=== PATIENT | female | born 1970 | race African-American/Black ===

== ENCOUNTER 2016-11-01 11:31 | Emergency (ER) | payer OTHER ==
[~2016-11-01] VITALS: Ht 160 cm; Wt 90.0 kg
[~2016-11-01 11:31] MED LIST: AMLO10TA80 PO; ATOR40TA70 PO; COR25; FERR-43 PO; LISI10TA5 PO; METO25TA6 PO; NITR0.4T3 SL
[2016-11-01 16:33] LABS: BASOPHILS % 0.5 % (0.0-2.0); EOSINOPHILS % 2.7 % (0.0-5.0); HEMATOCRIT. 35.5 % (36.0-48.0); HEMOGLOBIN. 11.3 g/dL (12.0-16.0); LYMPHOCYTES % 23.2 % (20.0-50.0); MEAN CORPUSCULAR VOLUME 65.9 fL (81.0-99.0); MEAN PLATELET VOLUME 9.9 fl (7.4-10.4); MONOCYTES % 9.4 % (2.0-8.0); NEUTROPHILS % 64.2 % (40.0-76.0); PLATELET 202 x1000/uL (130-400); RED BLOOD CELL COUNT 5.39 mill/uL (4.2-5.4)
[2016-11-01 16:35] LABS: CARBON DIOXIDE 25 mEq/L (21-32); CHLORIDE 106 mEq/L (98-107)
[2016-11-01 16:45] LABS: HCG SCREEN NEGATIVE
[2016-11-01] MEDS ORDERED: SODIUM CHLORIDE 0.9% 1,000 ML IV ONE (17:27)
[2016-11-01] MEDS ORDERED: KETOROLAC 30MG/ML VIAL IV ONE (17:30)
[2016-11-01 17:59] LABS: PLATELET ESTIMATE NORMAL
[2016-11-01 18:38] LABS: CLARITY URINE CLEAR (CLEAR); COLOR URINE DARK YELLOW (YELLOW); GLUCOSE URINE NEGATIVE (NEGATIVE); KETONES URINE TRACE (NEGATIVE); LEUKOCYTE ESTERASE URINE NEGATIVE (NEGATIVE); NITRITE URINE NEGATIVE (NEGATIVE); OCCULT BLOOD URINE NEGATIVE (NEGATIVE); PH URINE 5.5 (4.5-8.0); PROTEIN URINE 2+ (NEGATIVE); SPECIFIC GRAVITY URINE 1.025 (1.005-1.030)
[2016-11-01 20:04] VITALS: BP 128/72
== END 2016-11-01 20:06 | disposition home or self-care (01) ==
LOC: ER 13:11
DX: R10.32 Left lower quadrant pain (principal); R10.11 Right upper quadrant pain; G89.29 Other chronic pain; I11.9 Hypertensive heart disease without heart failure; I25.10 Atherosclerotic heart disease of native coronary artery without angina pectoris; Z95.1 Presence of aortocoronary bypass graft; E66.9 Obesity, unspecified; Z68.35 Body mass index [BMI] 35.0-35.9, adult; F17.210 Nicotine dependence, cigarettes, uncomplicated
CPT/HCPCS: 36415; 74022; 80053; 81001; 83690; 84703; 85025; 96361; 96374; 99285; J1885; J7030

== ENCOUNTER 2017-08-14 10:11 | Inpatient (IN) | payer OTHER ==
[~2017-08-14] VITALS: Ht 157.5 cm; Wt 88.9 kg
[~2017-08-14 10:11] MED LIST changes: -NITR0.4T3 SL; +NITR0.4T49 SL
[2017-08-14] MEDS ORDERED: ASPIRIN 81MG TABLET PO ONE (10:30)
[2017-08-14] MEDS ORDERED: NITROGLYCERIN 0.4MG TABLET SL SL PRN (10:30)
[2017-08-14 10:52] LABS: BASOPHILS % 0.7 % (0.0-2.0); EOSINOPHILS % 0.7 % (0.0-5.0); HEMATOCRIT. 34.3 % (36.0-48.0); HEMOGLOBIN. 11.1 g/dL (12.0-16.0); LYMPHOCYTES % 20.7 % (20.0-50.0); MEAN CORPUSCULAR HEMOGLOBIN 21.3 pg (28.0-32.0); MEAN CORPUSCULAR VOLUME 65.5 fL (81.0-99.0); MEAN PLATELET VOLUME 9.5 fl (7.4-10.4); MONOCYTES % 11.3 % (2.0-8.0); NEUTROPHILS % 66.6 % (40.0-76.0); PLATELET 179 x1000/uL (130-400); RED BLOOD CELL COUNT 5.23 mill/uL (4.2-5.4); RED CELL DISTRIBUTION WIDTH 16.9 % (11.6-14.6)
[2017-08-14 11:01] LABS: PROTHROMBIN TIME 10.6 sec (9.4-11.6)
[2017-08-14 11:05] LABS: CHLORIDE 107 mEq/L (98-107)
[2017-08-14 11:09] LABS: TROPONIN I < 0.02 ng/mL (0.00-0.04)
[2017-08-14 11:14] LABS: PLATELET ESTIMATE NORMAL
[2017-08-14] MEDS ORDERED: ACETAMINOPHEN WITH CODEINE 300/30MG TABLET PO ONE (11:30)
[2017-08-14] MEDS ORDERED: POTASSIUM CHLORIDE 20MEQ TABLET SR PO ONE (12:00)
[2017-08-14] MEDS ORDERED: IPRATROPIUM/ALBUTEROL 0.5-3(2.5)MG/3ML NEB INH PRN (13:30)
[2017-08-14] MEDS ORDERED: CLONIDINE 0.2MG TABLET PO PRN (13:30)
[2017-08-14] MEDS ORDERED: ACETAMINOPHEN 325MG TABLET PO PRN (13:30)
[2017-08-14] MEDS ORDERED: LORAZEPAM 0.5MG TABLET PO PRN (13:30)
[2017-08-14] MEDS ORDERED: MAGNESIUM/ALUMINUM HYDROXIDE/SIMETHICONE 30ML UDC PO PRN (13:30)
[2017-08-14] MEDS ORDERED: REGADENOSON 0.4 MG/5 ML IV ONE (13:30)
[2017-08-14] MEDS ORDERED: ONDANSETRON HCL 4MG/2ML VIAL IV PRN (13:30)
[2017-08-14] MEDS ORDERED: CLONIDINE 0.1MG TABLET PO PRN (13:30)
[2017-08-14 14:35] LABS: HCG SCREEN NEGATIVE
[2017-08-14] MEDS: HYDROCODONE/ACETAMINOPHEN 5/325MG TABLET PO PRN (17:30)
[2017-08-14 20:30] VITALS: BP 152/76
[2017-08-14 20:45] LABS: CHLORIDE 108 mEq/L (98-107)
[2017-08-14 20:49] LABS: CREATINE KINASE 65 IU/L (26-192); CREATINE KINASE MB FRACTION < 0.5 ng/mL (0.5-3.6); TROPONIN I < 0.02 ng/mL (0.00-0.04)
[2017-08-14] MEDS ORDERED: ATORVASTATIN CALCIUM 40MG TABLET PO SCH (21:00)
[2017-08-14] MEDS ORDERED: ENOXAPARIN 40MG/0.4ML SYR SUBCUT SCH (21:00)
[2017-08-14 22:27] VITALS: BP 152/76
[2017-08-14] MEDS: LISINOPRIL 5MG TABLET PO SCH (22:45)
[2017-08-14] MEDS: AMLODIPINE 5MG TABLET PO SCH (22:45)
[2017-08-14] MEDS: METOPROLOL TARTRATE 25MG TABLET PO SCH (22:45)
[2017-08-15] VITALS: BP 127/67
[2017-08-15 00:05] LABS: CREATINE KINASE 59 IU/L (26-192); CREATINE KINASE MB FRACTION < 0.5 ng/mL (0.5-3.6); TROPONIN I < 0.02 ng/mL (0.00-0.04)
[2017-08-15] MEDS ORDERED: ALBU90AE IH (00:15)
[2017-08-15] MEDS ORDERED: FLUT16SP15 BOTHNSTRLS (00:15)
[2017-08-15 04:00] VITALS: BP 116/71
[2017-08-15 05:10] LABS: CLARITY URINE CLEAR (CLEAR); COLOR URINE YELLOW (YELLOW); KETONES URINE NEGATIVE (NEGATIVE); LEUKOCYTE ESTERASE URINE NEGATIVE (NEGATIVE); NITRITE URINE NEGATIVE (NEGATIVE); OCCULT BLOOD URINE NEGATIVE (NEGATIVE); PROTEIN URINE 1+ (NEGATIVE); SPECIFIC GRAVITY URINE 1.021 (1.005-1.030); UROBILINOGEN URINE 0.2 E.U./dL (0.2-1.0)
[2017-08-15 05:55] LABS: *AMPHETAMINES SCREEN URINE NEGATIVE (NEGATIVE); *BARBITURATES SCREEN URINE NEGATIVE (NEGATIVE); *BENZODIAZEPINES SCREEN URINE NEGATIVE (NEGATIVE); *COCAINE SCREEN URINE NEGATIVE (NEGATIVE); CANNABINOID URINE SCREEN NEGATIVE (NEGATIVE); METHADONE URINE SCREEN NEGATIVE (NEGATIVE); OPIATES URINE SCREEN PRESUMTIVE POSITIVE (NEGATIVE); PHENCYCLIDINE URINE SCREEN NEGATIVE (NEGATIVE)
[2017-08-15 07:33] LABS: BASOPHILS % 0.6 % (0.0-2.0); EOSINOPHILS % 1.6 % (0.0-5.0); HEMOGLOBIN. 10.7 g/dL (12.0-16.0); LYMPHOCYTES % 23.7 % (20.0-50.0); MEAN CORPUSCULAR HEMOGLOBIN 21.5 pg (28.0-32.0); MEAN CORPUSCULAR VOLUME 66.7 fL (81.0-99.0); MEAN PLATELET VOLUME 10.6 fl (7.4-10.4); NEUTROPHILS % 62.1 % (40.0-76.0); PLATELET 177 x1000/uL (130-400); RED BLOOD CELL COUNT 4.96 mill/uL (4.2-5.4); RED CELL DISTRIBUTION WIDTH 16.8 % (11.6-14.6)
[2017-08-15 08:00] VITALS: BP 130/69
[2017-08-15] MEDS ORDERED: REGADENOSON 0.4 MG/5 ML IV ONE (08:45)
[2017-08-15] MEDS ORDERED: ASPIRIN 81MG EC TABLET PO SCH (09:00)
[2017-08-15] MEDS: AMLODIPINE 5MG TABLET PO SCH (10:42)
[2017-08-15] MEDS: METOPROLOL TARTRATE 25MG TABLET PO SCH (10:42)
[2017-08-15] MEDS: LISINOPRIL 5MG TABLET PO SCH (10:42)
[2017-08-15] MEDS: HYDROCODONE/ACETAMINOPHEN 5/325MG TABLET PO PRN (11:32)
[2017-08-15 12:00] VITALS: BP 125/78
[2017-08-15 18:03] LABS: UCG SCREEN NEGATIVE
[2017-08-15 18:52] VITALS: BP 112/82
== END 2017-08-15 19:43 | disposition home or self-care (01) | DRG 243 ==
LOC: ER 10:25 → 5WST 12:03 → ENRESERV 19:02
PROVIDERS: ADMIT Internal Medicine; ATTEND Internal Medicine
DX: K21.9 Gastro-esophageal reflux disease without esophagitis (principal); E46 Unspecified protein-calorie malnutrition; I11.9 Hypertensive heart disease without heart failure; E78.5 Hyperlipidemia, unspecified; E78.00 Pure hypercholesterolemia, unspecified; E87.6 Hypokalemia; F17.210 Nicotine dependence, cigarettes, uncomplicated; I25.10 Atherosclerotic heart disease of native coronary artery without angina pectoris; J44.9 Chronic obstructive pulmonary disease, unspecified; Z79.82 Long term (current) use of aspirin; Z79.899 Other long term (current) drug therapy; Z95.1 Presence of aortocoronary bypass graft; Z68.35 Body mass index [BMI] 35.0-35.9, adult
CPT/HCPCS: 36415; 71045; 78452; 80048; 80053; 80061; 80305; 81003; 81025; 82550; 82553; 83036; 83735; 83880; 84443; 84484; 84703; 85025; 85379; 85610; 93005; 93017; 93306; 93970; 99285; A9500; J1650; J2785

== ENCOUNTER 2019-08-18 18:53 | Emergency (ER) | payer MEDICAID, OTHER ==
[~2019-08-18] VITALS: Ht 157.5 cm; Wt 91.0 kg
[~2019-08-18 18:53] MED LIST changes: +ALBU90AE IH; +FLUT16SP15 BOTHNSTRLS
[2019-08-19 02:46] LABS: CHLORIDE 108 mEq/L (98-107)
[2019-08-19 03:07] LABS: BASOPHILS % 1.1 % (0.0-2.0); EOSINOPHILS % 2.8 % (0.0-5.0); HEMATOCRIT. 37.2 % (36.0-48.0); HEMOGLOBIN. 12.1 g/dL (12.0-16.0); LYMPHOCYTES % 37.9 % (20.0-50.0); MEAN CORPUSCULAR HEMOGLOBIN 21.5 pg (28.0-32.0); MEAN CORPUSCULAR VOLUME 66.1 fL (81.0-99.0); MONOCYTES % 9.2 % (2.0-8.0); RED BLOOD CELL COUNT 5.62 mill/uL (4.2-5.4); RED CELL DISTRIBUTION WIDTH 17.9 % (11.6-14.6)
[2019-08-19 03:32] LABS: MEAN PLATELET VOLUME 9.6 fl (7.4-10.4); PLATELET 192 x1000/uL (130-400)
[2019-08-19] MEDS ORDERED: IBUPROFEN 600MG TABLET PO ONE (04:00)
[2019-08-19 04:23] VITALS: BP 147/75
== END 2019-08-19 04:27 | disposition home or self-care (01) ==
LOC: ER 18:53
DX: M54.12 Radiculopathy, cervical region (principal); I10 Essential (primary) hypertension; E78.00 Pure hypercholesterolemia, unspecified; J44.9 Chronic obstructive pulmonary disease, unspecified; Z79.899 Other long term (current) drug therapy; Z79.51 Long term (current) use of inhaled steroids
CPT/HCPCS: 36415; 71045; 80048; 81025; 85025; 93005; 99285

== ENCOUNTER 2019-09-01 11:55 | Emergency (ER) | payer MEDICAID ==
[~2019-09-01] VITALS: Ht 160 cm; Wt 94.0 kg
[2019-09-01 14:36] LABS: BASOPHILS % 1.2 % (0.0-2.0); EOSINOPHILS % 2.3 % (0.0-5.0); HEMATOCRIT. 37.7 % (36.0-48.0); HEMOGLOBIN. 12.2 g/dL (12.0-16.0); MEAN CORPUSCULAR HEMOGLOBIN 21.6 pg (28.0-32.0); MEAN CORPUSCULAR VOLUME 66.8 fL (81.0-99.0); MONOCYTES % 9.2 % (2.0-8.0); NEUTROPHILS % 54.3 % (40.0-76.0); RED BLOOD CELL COUNT 5.65 mill/uL (4.2-5.4); RED CELL DISTRIBUTION WIDTH 17.8 % (11.6-14.6)
[2019-09-01 14:42] LABS: CHLORIDE 109 mEq/L (98-107)
[2019-09-01 15:10] LABS: PLATELET 204 x1000/uL (130-400); PLATELET ESTIMATE NORMAL
[2019-09-01 15:37] LABS: *AMPHETAMINES SCREEN URINE NEGATIVE (NEGATIVE); *BARBITURATES SCREEN URINE NEGATIVE (NEGATIVE); *BENZODIAZEPINES SCREEN URINE NEGATIVE (NEGATIVE); *COCAINE SCREEN URINE NEGATIVE (NEGATIVE); METHADONE URINE SCREEN NEGATIVE (NEGATIVE)
[2019-09-01 15:38] LABS: CANNABINOID URINE SCREEN NEGATIVE (NEGATIVE); PHENCYCLIDINE URINE SCREEN NEGATIVE (NEGATIVE)
[2019-09-01 18:27] VITALS: BP 148/70
[2019-09-02 20:14] LABS: OPIATES URINE SCREEN NEGATIVE (NEGATIVE)
== END 2019-09-01 18:33 | disposition home or self-care (01) ==
LOC: ER 11:55 → CANBEDREQ 17:14 → ER 18:33
DX: M54.12 Radiculopathy, cervical region (principal); I11.9 Hypertensive heart disease without heart failure; J44.9 Chronic obstructive pulmonary disease, unspecified; I10 Essential (primary) hypertension; E78.00 Pure hypercholesterolemia, unspecified; Z79.899 Other long term (current) drug therapy
CPT/HCPCS: 36415; 71045; 72141; 80053; 80305; 82962; 83880; 84484; 85025; 93005; 99285

== ENCOUNTER 2020-06-04 12:47 | Emergency (ER) | payer MEDICAID, MEDICARE ==
[~2020-06-04] VITALS: Ht 157.5 cm; Wt 120.0 kg
[2020-06-04 13:00] VITALS: BP 142/51
== END 2020-06-04 16:42 | disposition home or self-care (01) ==
LOC: ER 13:05
DX: J44.1 Chronic obstructive pulmonary disease with (acute) exacerbation (principal); J32.9 Chronic sinusitis, unspecified; I10 Essential (primary) hypertension; E78.00 Pure hypercholesterolemia, unspecified; Z95.1 Presence of aortocoronary bypass graft
CPT/HCPCS: 99283

== ENCOUNTER 2022-01-02 07:29 | Emergency (ER) | payer MEDICAID ==
[~2022-01-02] VITALS: Ht 157.5 cm; Wt 92.0 kg
[~2022-01-02 07:29] MED LIST changes: +LISI10TA26 PO; -LISI10TA5 PO
[2022-01-02] MEDS ORDERED: KETOROLAC 60MG/2ML VIAL IM ONE (08:00)
[2022-01-02] MEDS ORDERED: PREDNISONE 20MG TABLET PO ONE (08:00)
[2022-01-02] MEDS ORDERED: IPRATROPIUM/ALBUTEROL 0.5-3(2.5)MG/3ML NEB HHN ONE (08:00)
[2022-01-02] MEDS ORDERED: ACETAMINOPHEN 325MG TABLET PO ONE (08:00)
[2022-01-02] MEDS ORDERED: P50 MT (09:57)
[2022-01-02] MEDS ORDERED: IBUP-2028 MT (09:57)
[2022-01-02] MEDS ORDERED: ALBU6.7H9 INH (09:57)
[2022-01-02] MEDS ORDERED: TOPUD PO (09:57)
[2022-01-02 10:20] VITALS: BP 131/72
== END 2022-01-02 10:41 | disposition home or self-care (01) ==
LOC: ER 08:18
DX: R07.89 Other chest pain (principal); R05.9 Cough, unspecified; Z20.822 Contact with and (suspected) exposure to COVID-19; I25.10 Atherosclerotic heart disease of native coronary artery without angina pectoris; J44.9 Chronic obstructive pulmonary disease, unspecified; E78.00 Pure hypercholesterolemia, unspecified; I10 Essential (primary) hypertension; Z87.891 Personal history of nicotine dependence
CPT/HCPCS: 71045; 87426; 87804; 93005; 94640; 96372; 99285; C9803; J1885; J7512; Z7610; 94664

== ENCOUNTER 2023-07-27 10:35 | Emergency (ER) | payer MEDICAID, OTHER ==
[~2023-07-27] VITALS: Ht 157.5 cm; Wt 96.0 kg
[~2023-07-27 10:35] MED LIST changes: +ALBU6.7H3 INH; +IBUP-2028 MT; +P50 MT; +TOPUD PO
[2023-07-27 10:56] VITALS: O2SAT 99
[2023-07-27 11:45] LABS: BASOPHILS % 0.6 % (0.0-2.0); EOSINOPHILS % 1.5 % (0.0-5.0); HEMATOCRIT. 29.4 % (36.0-48.0); HEMOGLOBIN. 9.6 g/dL (12.0-16.0); LYMPHOCYTES % 21.9 % (20.0-50.0); MEAN CORPUSCULAR HEMOGLOBIN 21.1 pg (28.0-32.0); MEAN CORPUSCULAR HGB CONC 32.6 g/dL (31.0-37.0); MEAN CORPUSCULAR VOLUME 64.5 fL (81.0-99.0); MEAN PLATELET VOLUME 9.8 fl (7.4-10.4); MONOCYTES % 9.7 % (2.0-8.0); NEUTROPHILS % 66.3 % (40.0-76.0); PLATELET 219 x1000/uL (130-400); RED BLOOD CELL COUNT 4.56 mill/uL (4.2-5.4); RED CELL DISTRIBUTION WIDTH 17.1 % (11.6-14.6)
[2023-07-27 11:55] LABS: ADD RBC MORPHOLOGY YES; DIFFERENTIAL COMMENT 1
[2023-07-27 11:56] LABS: CLARITY URINE CLEAR (CLEAR); COLOR URINE DARK YELLOW (YELLOW); PH URINE 5.5 (4.5-8.0); PROTEIN URINE 3+ (NEGATIVE); SPECIFIC GRAVITY URINE 1.026 (1.005-1.030)
[2023-07-27 11:57] LABS: GLUCOSE URINE TRACE (NEGATIVE); KETONES URINE TRACE (NEGATIVE); LEUKOCYTE ESTERASE URINE NEGATIVE (NEGATIVE); NITRITE URINE NEGATIVE (NEGATIVE); OCCULT BLOOD URINE NEGATIVE (NEGATIVE)
[2023-07-27] MEDS ORDERED: EZET10TA81 PO (12:12)
[2023-07-27] MEDS ORDERED: FURO20TA4 PO (12:12)
[2023-07-27 12:15] VITALS: TEMP 98.9
[2023-07-27] MEDS ORDERED: ACETAMINOPHEN 500MG TABLET PO NR (12:15)
[2023-07-27 12:27] LABS: ALANINE AMINOTRANSFERASE 28 IU/L (10-49); ASPARTATE AMINOTRANSFERASE 16 IU/L (<34); BILIRUBIN TOTAL 0.4 mg/dL (0.1-1.0); CALCIUM 9.3 mg/dL (8.7-10.4); CARBON DIOXIDE 24 mEq/L (21-32); CHLORIDE 106 mEq/L (98-107); CREATININE 0.9 mg/dL (0.6-1.0); GLUCOSE 269 mg/dL (70-105); POTASSIUM 4.1 mEq/L (3.5-5.1); PROTEIN TOTAL 7.4 g/dL (6.0-8.3); SODIUM 138 mEq/L (136-145); UREA NITROGEN BLOOD 12 mg/dL (9-23)
[2023-07-27 12:50] LABS: BACTERIA URINE 1+; RBC URINE 0-2 /hpf (0-2); SQUAMOUS EPITHELIAL CELL URINE 1+ /lpf (RARE/1+); WBC URINE 0-2 /hpf (0-2); YEAST URINE NONE SEEN
[2023-07-27 12:51] LABS: MUCUS URINE TRACE /lpf (< = 2+)
[2023-07-27 13:44] LABS: ANISOCYTOSIS 1+; MICROCYTOSIS 4+; PLATELET ESTIMATE NORMAL; TARGET CELLS 1+
[2023-07-27 14:43] LABS: ALBUMIN 4.5 g/dL (3.2-4.8); TROPONIN I HIGH SENSITIVITY 14 ng/L (3.0-34)
[2023-07-27 17:23] VITALS: BP 131/58; PULSE 72; RESP 16
== END 2023-07-27 17:27 | disposition home or self-care (01) ==
LOC: ER 11:07
DX: R10.12 Left upper quadrant pain (principal); E78.00 Pure hypercholesterolemia, unspecified; I25.2 Old myocardial infarction; I10 Essential (primary) hypertension
CPT/HCPCS: 36415; 71045; 74176; 80053; 81003; 84484; 85025; 93005; 99285

== ENCOUNTER 2024-07-03 15:26 | Emergency (ER) | payer OTHER ==
[~2024-07-03] VITALS: Ht 157.5 cm; Wt 93.4 kg
[~2024-07-03 15:26] MED LIST changes: -ALBU6.7H3 INH; -ALBU90AE IH; -COR25; +EZET10TA81 PO; -FERR-43 PO; -FLUT16SP15 BOTHNSTRLS; +FURO20TA4 PO; -IBUP-2028 MT; -LISI10TA26 PO; -METO25TA6 PO; -NITR0.4T49 SL; -P50 MT; -TOPUD PO
[2024-07-03 15:31] VITALS: O2SAT 98
[2024-07-03 17:17] LABS: BASOPHILS % 0.8 % (0.0-2.0); EOSINOPHILS % 2.1 % (0.0-5.0); HEMOGLOBIN. 11.6 g/dL (12.0-16.0); LYMPHOCYTES % 27.8 % (20.0-50.0); MEAN CORPUSCULAR HEMOGLOBIN 21.6 pg (28.0-32.0); MEAN CORPUSCULAR HGB CONC 32.1 g/dL (31.0-37.0); MEAN CORPUSCULAR VOLUME 67.4 fL (81.0-99.0); MEAN PLATELET VOLUME 10.4 fl (7.4-10.4); MONOCYTES % 8.2 % (2.0-8.0); NEUTROPHILS % 61.1 % (40.0-76.0); PLATELET 229 x1000/uL (130-400); RED BLOOD CELL COUNT 5.34 mill/uL (4.2-5.4); RED CELL DISTRIBUTION WIDTH 16.8 % (11.6-14.6); WHITE BLOOD COUNT 8.8 x1000/uL (4.5-11.0)
[2024-07-03 17:19] LABS: CHLORIDE 109 mEq/L (98-107); POTASSIUM 3.6 mEq/L (3.5-5.1); SODIUM 144 mEq/L (136-145)
[2024-07-03 17:20] LABS: ADD RBC MORPHOLOGY YES; CARBON DIOXIDE 23 mEq/L (21-32); DIFFERENTIAL COMMENT 1
[2024-07-03 17:25] LABS: CREATININE 1.1 mg/dL (0.6-1.0); GLUCOSE 97 mg/dL (70-105); UREA NITROGEN BLOOD 14 mg/dL (9-23)
[2024-07-03 17:26] LABS: TROPONIN I HIGH SENSITIVITY 5 ng/L (3.0-34)
[2024-07-03] MEDS ORDERED: IPRATROPIUM BROMIDE (0.02%) 0.5MG/2.5ML NEB HHN STA (17:58)
[2024-07-03] MEDS ORDERED: ALBUTEROL (0.083%) 2.5MG/3ML NEB HHN STA (17:58)
[2024-07-03 18:00] LABS: ANISOCYTOSIS 1+; GIANT PLATELETS FEW; HYPOCHROMASIA 2+; MICROCYTOSIS 3+; OVALOCYTES 1+; PLATELET ESTIMATE NORMAL
[2024-07-03] MEDS ORDERED: AMOX1TAB16 MT (18:03)
[2024-07-03] MEDS ORDERED: P50 MT (18:06)
[2024-07-03] MEDS: KETOROLAC 30MG/ML VIAL IM STA (18:51)
[2024-07-03] MEDS: PREDNISONE 20MG TABLET PO STA (18:52)
[2024-07-03 19:27] VITALS: BP 156/59; PULSE 71; RESP 16; TEMP 36.66960; O2SAT 98
== END 2024-07-03 19:29 | disposition home or self-care (01) ==
LOC: ER 15:26
DX: J44.1 Chronic obstructive pulmonary disease with (acute) exacerbation (principal); J32.9 Chronic sinusitis, unspecified; E11.9 Type 2 diabetes mellitus without complications; E78.00 Pure hypercholesterolemia, unspecified; I25.2 Old myocardial infarction; Z79.899 Other long term (current) drug therapy; Z95.1 Presence of aortocoronary bypass graft
CPT/HCPCS: 80048; 85025; 84484; 36415; 71045; 93005; 96372; 99285; J7512; J1885; Z7610